=== PATIENT | female | born 1975 | race Caucasian/White ===

== ENCOUNTER 2022-12-09 09:46 | Day surgery (SDC) | payer OTHER | END 2022-12-09 16:05 | disposition home or self-care (01) | LOC: CIR.AMB 09:46 | PROVIDERS: ATTEND Colon & Rectal Surgery | DX: C18.9 Malignant neoplasm of colon, unspecified (principal); K92.1 Melena; Z20.822 Contact with and (suspected) exposure to COVID-19 ==

== ENCOUNTER 2025-03-07 09:15 | Inpatient (IN) | payer OTHER ==
[~2025-03-07] VITALS: Ht 162.6 cm; Wt 90.7 kg
[2025-03-07 10:45] LABS: BASO % 0.7 % (0.1-1.2); EOS # 0.29 (0.04-0.54); EOS % 3.4 % (0.7-7.0); HEMATOCRIT 39.7 % (34.1-44.9); HEMOGLOBIN 13.5 g/dL (11.2-15.7); LYMPH # 2.15 (1.18-3.74); LYMPH % 25.1 % (19.3-53.1); MEAN CORPUSCULAR HEMOGLOBIN 31.1 pg (25.6-32.2); MONO # 0.76 (0.24-0.82); MONO % 8.9 % (4.7-12.5); NEUT # 5.25 (1.56-6.13); NEUT % 61.2 % (34.0-71.1); PLATELET COUNT 163 K/uL (163-369); RED BLOOD COUNT 4.34 M/uL (3.93-5.22); RED CELL DISTRIBUTION WIDTH 13.2 % (11.6-14.4)
[2025-03-07 10:54] LABS: URINE APPEARANCE Clear; URINE BILIRRUBIN Negative (NEGATIVE); URINE BLOOD Negative; URINE COLOR Yellow; URINE GLUCOSE Negative (NEGATIVE); URINE KETONE Trace (NEGATIVE); URINE LEUKOCYTE Negative; URINE NITRATE Negative; URINE PROTEIN Trace (NEGATIVE); URINE UROBILINOGEN 0.2 E.U./dl
[2025-03-07 10:58] LABS: URINE BACTERIA 220.2 uL (0.0-1933); URINE EPITHELIAL CELLS 10.2 uL (0.0-38.8); URINE WBC 11.7 uL (0.0-23.2)
[2025-03-07 11:10] LABS: URINE CAST 0.88 uL (0.0-1.40)
[2025-03-07 11:15] VITALS: BP 143/86
[2025-03-07 11:25] LABS: INR 0.95; PARTIAL THROMBOPLASTIN TIME 26.8 SECONDS (22.0-34.0); PROTHROMBIN TIME 10.4 SECONDS (9.0-11.5)
[2025-03-07 12:00] LABS: ALBUMIN 3.8 gm/dL (3.4-5.0); BILIRUBIN TOTAL 0.56 mg/dL (0.3-1.2); CREATININE SERUM 0.9 mg/dL (0.55-1.02); GFR 66.55; GLOBULINA 3.1 G/DL (2.4-3.5); POTASSIUM 4.09 mEq/L (3.5-5.1); TOTAL PROTEIN 6.9 gm/dL (6.4-8.2)
[2025-03-13] MEDS ORDERED: CEFTRIAXONE SODIUM 2,000 MG VIAL ONE (13:25)
[2025-03-13] MEDS ORDERED: METRONIDAZOLE/SODIUM CHLORIDE 500 MG/100 ML PIGGYBACK IV ONE (13:25)
[2025-03-13] MEDS ORDERED: LIDOCAINE HCL 1%/EPINEPHRINE 20ML VIAL IJ ONE (16:00)
[2025-03-13] MEDS ORDERED: SUGAMMADEX SODIUM 200 MG/2 ML VIAL IV ONE (19:27)
[2025-03-13] MEDS ORDERED: DEXTROSE 50 % IN WATER 0.5 G/ML VIAL IV PRN (19:45)
[2025-03-13] MEDS ORDERED: OxyCODONE HCL 5 MG TABLET (ROXICODONE) PO PRN (19:45)
[2025-03-13] MEDS ORDERED: RINGERS SOLUTION,LACTATED 1,000 ML IV SCH (19:45)
[2025-03-13] MEDS ORDERED: ONDANSETRON HCL 2 MG/ML VIAL IV PRN (19:45)
[2025-03-13] MEDS ORDERED: MORPHINE SULFATE 4 MG/ML CARTRIDGE IV PRN (19:45)
[2025-03-13] MEDS ORDERED: ACETAMINOPHEN 500 MG GEL..CAP PO SCH (20:00)
[2025-03-13] MEDS ORDERED: FAMOTIDINE/PF 20 MG/2 ML VIAL IV PUSH SCH (21:00)
[2025-03-13] MEDS ORDERED: SIMETHICONE 125 MG CAPSULE PO SCH (21:00)
[2025-03-13] MEDS ORDERED: FAMOTIDINE/PF 20 MG/2 ML VIAL ONE (22:48)
[2025-03-13 23:21] LABS: BASO % 0.2 % (0.1-1.2); HEMATOCRIT 38.4 % (34.1-44.9); HEMOGLOBIN 13.1 g/dL (11.2-15.7); LYMPH # 0.98 (1.18-3.74); LYMPH % 5.1 % (19.3-53.1); MONO # 0.74 (0.24-0.82); MONO % 3.8 % (4.7-12.5); NEUT # 17.51 (1.56-6.13); NEUT % 90.5 % (34.0-71.1); PLATELET COUNT 168 K/uL (163-369); RED BLOOD COUNT 4.22 M/uL (3.93-5.22); RED CELL DISTRIBUTION WIDTH 12.9 % (11.6-14.4)
[2025-03-13] MEDS ORDERED: MORPHINE SULFATE 4 MG/ML VIAL IV ONE (23:30)
[2025-03-14] MEDS ORDERED: MORPHINE SULFATE 4 MG/ML VIAL IV ONE
[2025-03-14] MEDS ORDERED: GABAPENTIN 300 MG CAPSULE PO ONE (00:29)
[2025-03-14] MEDS ORDERED: METOCLOPRAMIDE HCL 5 MG/ML VIAL ONE (00:29)
[2025-03-14] MEDS ORDERED: ACETAMINOPHEN 500 MG GEL..CAP PO ONE (00:29)
[2025-03-14] MEDS ORDERED: METOCLOPRAMIDE HCL 5 MG/ML VIAL IV SCH (01:00)
[2025-03-14] MEDS ORDERED: GABAPENTIN 300 MG CAPSULE PO SCH (01:00)
[2025-03-14] MEDS ORDERED: CELECOXIB 200 MG CAPSULE PO SCH (05:00)
[2025-03-14 07:30] LABS: BASO % 0.2 % (0.1-1.2); EOS # 0.02 (0.04-0.54); EOS % 0.1 % (0.7-7.0); HEMATOCRIT 35.4 % (34.1-44.9); HEMOGLOBIN 12.1 g/dL (11.2-15.7); LYMPH # 1.68 (1.18-3.74); LYMPH % 10.7 % (19.3-53.1); MEAN CORPUSCULAR HEMOGLOBIN 31.7 pg (25.6-32.2); MONO # 0.97 (0.24-0.82); MONO % 6.2 % (4.7-12.5); NEUT # 12.98 (1.56-6.13); NEUT % 82.4 % (34.0-71.1); PLATELET COUNT 155 K/uL (163-369); RED BLOOD COUNT 3.82 M/uL (3.93-5.22); RED CELL DISTRIBUTION WIDTH 12.9 % (11.6-14.4)
[2025-03-14 08:13] VITALS: BP 117/71; O2SAT 93
[2025-03-14 08:19] LABS: ALBUMIN 3.1 gm/dL (3.4-5.0); CALCIUM 8.2 mg/dL (8.5-10.1); CREATININE SERUM 0.76 mg/dL (0.55-1.02); GFR 80.88; MAGNESIUM 1.9 mg/dL (1.8-2.4); PHOSPHOROUS 3.8 mg/dL (2.5-4.9); POTASSIUM 3.84 mEq/L (3.5-5.1)
[2025-03-14] MEDS ORDERED: HYOSCYAMINE SULFATE 0.125 MG TAB.SUBL SL SCH (09:00)
[2025-03-14] MEDS ORDERED: LACTULOSE 20 G/30 ML BLIST.PACK PO SCH (09:00)
[2025-03-14] MEDS ORDERED: LACTOBACILLUS ACIDOPHILUS 1 CAP CAP PO SCH (09:00)
[2025-03-14] MEDS ORDERED: POLYETHYLENE GLYCOL 3350 17 GM BLIST.PACK PO SCH (17:00)
[2025-03-14] MEDS ORDERED: ENOXAPARIN SODIUM 40 MG/0.4 ML SYRINGE SUBCUTANEO SCH (17:00)
[2025-03-14 23:16] VITALS: BP 133/84; O2SAT 95
[2025-03-15 01:35] VITALS: BP 104/72; O2SAT 94
[2025-03-15 08:45] VITALS: BP 128/84; O2SAT 95
[2025-03-15] MEDS ORDERED: ENOXAPARIN SODIUM 40 MG/0.4 ML SYRINGE SUBCUTANEO SCH (09:00)
[2025-03-15 16:02] VITALS: BP 127/72; O2SAT 95
[2025-03-16 00:40] VITALS: BP 116/76; O2SAT 95
[2025-03-16 07:01] LABS: BASO % 0.2 % (0.1-1.2); EOS # 0.19 (0.04-0.54); HEMATOCRIT 33.8 % (34.1-44.9); HEMOGLOBIN 11.1 g/dL (11.2-15.7); LYMPH # 1.98 (1.18-3.74); LYMPH % 20.4 % (19.3-53.1); MEAN CORPUSCULAR HEMOGLOBIN 30.4 pg (25.6-32.2); MONO # 0.76 (0.24-0.82); MONO % 7.8 % (4.7-12.5); NEUT # 6.69 (1.56-6.13); NEUT % 68.9 % (34.0-71.1); PLATELET COUNT 148 K/uL (163-369); RED BLOOD COUNT 3.65 M/uL (3.93-5.22); RED CELL DISTRIBUTION WIDTH 12.6 % (11.6-14.4)
[2025-03-16 07:39] LABS: ALBUMIN 2.8 gm/dL (3.4-5.0); BILIRUBIN TOTAL 0.46 mg/dL (0.3-1.2); CALCIUM 8.1 mg/dL (8.5-10.1); CREATININE SERUM 0.79 mg/dL (0.55-1.02); GFR 77.35; GLOBULINA 2.6 G/DL (2.4-3.5); POTASSIUM 3.29 mEq/L (3.5-5.1); TOTAL PROTEIN 5.4 gm/dL (6.4-8.2)
[2025-03-16 08:14] VITALS: BP 137/86; O2SAT 95
[2025-03-16] MEDS ORDERED: HYOSCYAMINE0.125 M1 SL (09:10)
[2025-03-16] MEDS ORDERED: CELEBREX200MG PO (09:11)
== END 2025-03-16 12:02 | disposition home or self-care (01) | DRG 330 ==
LOC: SURG 03-13 08:35 → O/R 03-13 08:35 → SURH 03-13 09:15 → SURG 03-13 22:33
PROVIDERS: ADMIT Colon & Rectal Surgery; ATTEND Colon & Rectal Surgery
PROC: 0DBP4ZZ Excision of Rectum, Percutaneous Endoscopic Approach (ICD-10-PCS; 2025-03-13)
PROC: 07BB4ZZ Excision of Mesenteric Lymphatic, Percutaneous Endoscopic Approach (ICD-10-PCS; 2025-03-13)
PROC: 0DQ84ZZ Repair Small Intestine, Percutaneous Endoscopic Approach (ICD-10-PCS; 2025-03-13)
PROC: 0DJD8ZZ Inspection of Lower Intestinal Tract, Via Natural or Artificial Opening Endoscopic (ICD-10-PCS; 2025-03-13)
PROC: 0DTN4ZZ Resection of Sigmoid Colon, Percutaneous Endoscopic Approach (ICD-10-PCS; principal; 2025-03-13 11:15)
DX: C19 Malignant neoplasm of rectosigmoid junction (principal); K91.71 Accidental puncture and laceration of a digestive system organ or structure during a digestive system procedure; K92.1 Melena